=== PATIENT | female | born 1965 | race Caucasian/White ===

== ENCOUNTER 2023-12-17 19:03 | Emergency (ER) | payer OTHER, SELFPAY ==
[2023-12-17 19:15] VITALS: BP 176/104
[2023-12-17 20:18] VITALS: BP 149/95
--- NOTE | 2023-12-17 20:39 | ED.GENMED ---
Addendum entered and electronically signed by Sal Hernandez MD 12/17/23 21:53:
Normal sinus rhythm 87. [place] intervals within normal limits. No acute changes. No change in EKG
Original Note:
History of Present Illness
General
Chief Complaint: Allergic Reaction
Source: patient
Exam Limitations: none
Time Seen by Provider: 12/17/23 20:25
Travel History
Have you had any contact with someone who has COVID-19?: Yes
Comment: 2 WEEKS AGO
Do you have any symptoms of coronavirus? Fever > 100 degrees, chills, cough, shortness of breath, sore throat, loss of taste or smell, muscle aches, or headache?: No
History of Present Illness
History of Present Illness:
58-year-old female went into a store at about 4 PM. Fairly suddenly felt itchy throat tightness eyes tearing took 6 Zyrtec and flow tach with moderate improvement. Had some heart racing dizziness and diarrhea patient was on cephalexin that was
finished last week. Currently feels moderately improved. Feels tired. No chest pain or shortness of breath. Some itchiness to her face
Past History
Past History
ED Past Medical History: HTN (Takes diltiazem ER 125 mg daily) and Other (Tachycardia)
ED Past Surgical History: Orthopedic and Other (Rhinoplasty)
Social History
Tobacco: Non-smoker
Alcohol: Occasional
Drug: None
Personal: Partner
Living: other (Lives with her fiwhit�)
Employment: Employed
Family History
Family History: Negative Early CAD or Sudden
Review of Systems
Review of Systems
All Other Systems: Not applicable
Constitutional: Denies fever
Cardiac: Denies chest pain
Phy Exam
Physical Exam
Physical Exam:
GENERAL: Alert and oriented in no apparent distress
EYE: Orbits normal.
NECK: Supple, no swelling
ENT: Pharynx with mild erythema
CARDIAC: Regular rate and rhythm without any obvious murmurs.
LUNGS: Clear breath sounds,normal
ABDOMEN: Soft, without focal tenderness or distention
NEUROLOGICAL: Alert and oriented , grossly non-focal
SKIN: Warm and dry, no rash or lesion, no discoloration, skin intact. No hives
MUSCULOSKELETAL: No edema,no deformity.Good color
PSYCH: Normal and appropriate interaction.
Course
Orders/Labs/Results
Orders:
Orders
12/17/23 20:33
Famotidine [Pepcid] 20 mg PO NOW STA
Prednisone [Deltasone] 50 mg PO NOW STA
12/17/23 20:51
EKG [Electrocardiogram (*1)] Urgent
Reason for Study: Chest Pain
EKG- Treatment ONCE
12/17/23 21:08
COVID-19 Antigen Urgent
Source: Nasal Swab
Vital Signs
Initial and Last Documented VS:
Initial Vital Signs
Temp Pulse Resp BP Pulse Ox
98 F 104 24 176/104 98
12/17/23 19:15 12/17/23 19:15 12/17/23 19:15 12/17/23 19:15 12/17/23 19:15
Last Documented Vital Signs
Temp Pulse Resp BP Pulse Ox
98 F 104 24 176/104 98
12/17/23 19:15 12/17/23 19:15 12/17/23 19:15 12/17/23 19:15 12/17/23 19:15
MDM/Problems Addressed
Differential Diagnosis Includes:
History and story all consistent with a allergic reaction. I do not feel there is a other etiology of the symptoms. Patient took Zyrtec. Will add Pepcid and prednisone with continued observation.
*Critical Care Note
Total Time (30-74mins, 75-104mins- exclusive of procedures): Not Applicable
Update Note
Update Note:
Blood pressure 127/94. Medically stable. Just feels tired. History all consistent with some type of allergic reaction. Nothing to support other etiology. Stable for discharge to follow-up
ED Attending Note
-
Portions of this chart may have been created with voice recognition software.� Occasional wrong word or��sound alike� substitutions may have occurred due to the inherent limitations of voice recognition software.
Discharge Plan
Departure
Patient Disposition: Home (Routine Discharge)
Date of Disposition: 12/17/23
Time of Disposition: 21:42
Patient with high blood pressure during this ER visit?: Yes
Discharge Problem:
Allergic reaction, Elevated blood pressure reading
Instructions: Allergic Reaction ED, BLOOD PRESSURE
Prescriptions:
New
prednisone 50 mg tablet
50 mg PO DAILY Qty: 5 0RF
No Action
diltiazem HCl 120 mg Capsule,Extended Release 24hr
120 mg PO DAILY
B Complex Tablet Extended Release
1 tab PO DAILY
levetiracetam 500 mg Tablet
250 mg PO DAILY
psyllium Packet
1 packet PO QPMPRN PRN (Reason: constipation)
melatonin 3 mg Tablet
3 mg PO Q72H
aspirin 81 mg Tablet,Delayed Release (Dr/Ec)
81 mg PO DAILYPRN PRN (Reason: racing heart)
arnica 20 % Tincture
1 ea TOPICAL DAILYPRN PRN (Reason: bruising)
cholecalciferol (vitamin D3) [Vitamin D3] 25 mcg (1,000 unit) Tablet
25 mcg PO DAILY
magnesium oxide 400 mg magnesium Tablet
400 mg PO DAILY
Fennel Tea
1 dose PO DAILYPRN PRN (Reason: hot flashes)
levetiracetam [Keppra] 500 mg tablet
500 mg PO QPM
zinc sulfate 50 mg zinc (220 mg) Tablet
50 mg PO DAILY
valacyclovir 1 gram tablet
1,000 mg PO Q8H Qty: 21 0RF
Referrals:
Gresham,Alicia S., MD [Family Provider] - Follow up in 2-3 days
Activity Restrictions/Additional Instructions:
Continue Zyrtec for the next few days
Also take a Pepcid a day for a week
Follow-up closely with your primary physician
Interventions
Interventions:
*Risk Screen - Suicide Last Done: 12/17/23 19:15
*General Assessment Last Done: 12/17/23 20:22
*Neglect/Abuse Screening Last Done: 12/17/23 19:15
*ED COVID-19 Vaccine History Last Done: 12/17/23 20:22
Discharge Date and Time
Print Language: GERMAN
[2023-12-17] MEDS: PEPCID 20 MG PO (21:01)
[2023-12-17] MEDS: DELTASONE 50 MG PO (21:01)
[2023-12-17 21:28] LABS: COVID-19 Antigen Negative (Negative)
[2023-12-17 21:36] VITALS: BP 127/97
== END 2023-12-17 22:03 | disposition home or self-care (01) ==
LOC: EMR 19:03
PROVIDERS: EMERGENCY PHYSICIAN Emergency Medicine; FAMILY PHYSICIAN Internal Medicine
DX: T78.40XA Allergy, unspecified, initial encounter (principal); I10 Essential (primary) hypertension; R42 Dizziness and giddiness; R19.7 Diarrhea, unspecified; R00.0 Tachycardia, unspecified; R09.89 Other specified symptoms and signs involving the circulatory and respiratory systems; L29.9 Pruritus, unspecified; Z11.52 Encounter for screening for COVID-19; Z79.899 Other long term (current) drug therapy; Z79.82 Long term (current) use of aspirin; Z88.0 Allergy status to penicillin; Z88.2 Allergy status to sulfonamides
CPT/HCPCS: 99283; 87811; 93005

== ENCOUNTER → 2024-02-08 08:09 | Outpatient (REF) | payer OTHER, SELFPAY | LOC: WDC 08:09 | PROVIDERS: ATTENDING PHYSICIAN Obstetrics & Gynecology; FAMILY PHYSICIAN Nurse Practitioner | DX: R92.2 Inconclusive mammogram (principal); R92.30 Dense breasts, unspecified | CPT/HCPCS: 76641 ==

== ENCOUNTER → 2024-04-11 09:49 | Outpatient (REF) | payer OTHER, SELFPAY | LOC: RCS 09:49 | PROVIDERS: ATTENDING PHYSICIAN Nurse Practitioner; FAMILY PHYSICIAN Internal Medicine | DX: R07.89 Other chest pain (principal); I10 Essential (primary) hypertension; I48.0 Paroxysmal atrial fibrillation | CPT/HCPCS: 93017; 93350 ==

== ENCOUNTER → 2024-06-21 08:19 | Outpatient (REF) | payer OTHER, SELFPAY | LOC: WDC 08:19 | PROVIDERS: ATTENDING PHYSICIAN Obstetrics & Gynecology; FAMILY PHYSICIAN Internal Medicine | DX: Z12.31 Encounter for screening mammogram for malignant neoplasm of breast (principal) | CPT/HCPCS: 77063; 77067 ==

== ENCOUNTER → 2024-06-28 09:15 | Outpatient (REF) | payer OTHER, SELFPAY | LOC: WDC 09:15 | PROVIDERS: ATTENDING PHYSICIAN Obstetrics & Gynecology; FAMILY PHYSICIAN Internal Medicine | DX: R92.8 Other abnormal and inconclusive findings on diagnostic imaging of breast (principal) | CPT/HCPCS: 76642 ==

== ENCOUNTER → 2024-09-17 12:52 | Outpatient (REF) | payer OTHER, SELFPAY | LOC: PAVMRI 12:52 | PROVIDERS: ATTENDING PHYSICIAN Internal Medicine Cardiovascular Disease; FAMILY PHYSICIAN Internal Medicine | DX: H93.19 Tinnitus, unspecified ear (principal); R51.9 Headache, unspecified | CPT/HCPCS: 70553; A9575 ==

== ENCOUNTER 2025-05-11 16:40 | Emergency (ER) | payer OTHER, SELFPAY ==
[2025-05-11 16:43] VITALS: BP 162/98
[2025-05-11 17:21] LABS: Hematocrit 42.2 % (37.0-47.0); Hemoglobin 14.1 g/dL (12.0-16.0); Mean Corp Hgb Conc. 33.4 g/dL (33.0-37.0); Mean Corpuscular Volume 92.3 fL (81.0-99.0); Nucleated Red Blood Cells % 0 %; Platelet Count 256 10^3/uL (130-400); Red Cell Dist. Width 12.5 % (11.5-14.5)
[2025-05-11 17:44] LABS: ALT (SGPT) 46 U/L (0-35); AST (SGOT) 41 U/L (14-36); Albumin 5.0 g/dl (3.5-5.0); Alkaline Phosphatase 73 U/L (38-126); Blood Urea Nitrogen 10 mg/dl (7-17); Calcium 9.7 mg/dl (8.4-10.2); Carbon Dioxide 27 mmol/L (22-30); Chloride 98 mmol/L (98-107); Glucose 97 mg/dl (70-99); Potassium 5.6 mmol/L (3.5-5.1); Sodium 131 mmol/L (135-145); Total Protein 8.4 g/dl (6.3-8.2); eGFR > 60.00
[2025-05-11 19:09] VITALS: BMI 20.7
--- NOTE | 2025-05-11 19:10 | EDRN ---
Pt was about to go out to dinner around [id number] and says she felt 'weird'. Pt noted a wavy line in R eye going up that lasted about 10 minutes. Pt had pressure in head and bp was 152/98. Pt felt very 'off'. Pt had shingles vaccine on
and concerned it may be a reaction. Pt had same visual disturbance and similar symptoms in 2012 - pt went to urgent care at that time and she says they waited for her bp to go down and everything resolved. Pt unsure if she still has pressure in
her head now because she has not eaten in awhile and thinks she is dehydrated from working in the yard all day. Pt has a stiff neck. Pt was nauseous when this happened, not now. No vomiting. Pt had photophobia during episode but not now. Pt had
her vision checked last week and eye pressures were normal. Visual disturbance has not returned since initial episode.
[2025-05-11 19:22] VITALS: BP 138/88
[2025-05-11 20:24] VITALS: BP 131/87
--- NOTE | 2025-05-11 22:26 | ED.GENMED ---
History of Present Illness
General
Chief Complaint: Visual Problem
Source: patient
Exam Limitations: none
Time Seen by Provider: 05/11/25 19:16
Nursing documentation reviewed up to this point in time: agreed with
History of Present Illness
History of Present Illness:
Patient is a 59-year-old female with history of hypertension who presents to the emergency department for evaluation of transient visual disturbance that she experienced earlier today. Patient states that around 5 PM she had just come in from
gardening in her backyard when she experienced a transient visual disturbance described as ' a band of waves in her peripheral vision'. The waves seem to migrate from her lower escoto of vision to the top and then repeat. This persisted for
approximately 5-10 minutes. She believes that this may have been happening in both eyes in the periphery.
She checks her blood pressure and was found to be hypertensive. This was also followed by a pressure type sensation in her head however denies any significant headache. By time of my evaluation, patient is completely asymptomatic. She denies any
visual changes. She denies any headache.
At no point during this event did patient have any loss of vision. She denies any diplopia. She denies any other neurologic symptoms. She has been ambulating independently without any dizziness.
Patient reports that she did have a similar episode many years ago. She has had past imaging performed which showed concern for MS however this was thoroughly worked up by a specialist at [place] without any findings. Continues to follow-up with
their office.
Patient did receive the shingles vaccine on . She denies any fever, neck pain, or rash. No chest pain or shortness of breath.
Past History
Past History
ED Past Medical History: HTN (Takes diltiazem ER 125 mg daily) and Other (Tachycardia)
ED Past Surgical History: Orthopedic and Other (Rhinoplasty)
Social History
Tobacco: Non-smoker
Alcohol: Occasional
Drug: None
Personal: Partner
Living: other (Lives with her fianc�)
Employment: Employed
Family History
Family History: Negative Early CAD or Sudden
Review of Systems
Review of Systems
Allergies reviewed?: Yes
All Other Systems: ROS reviewed and negative except as documented in HPI and ROS
Phy Exam
Physical Exam
Physical Exam:
Vitals: Hypertensive on arrival, improved by my assessment. Afebrile
General: Patient is very well appearing, no acute distress
Skin: Warm and dry, no rashes or lesions
Head: Normocephalic, atraumatic
Eyes: Sclera nonicteric. Pupils equal round and reactive to light bilaterally. EOMs intact. No nystagmus.
Throat: Protecting airway
Neck: Normal ROM, no cervical spine tenderness, no meningismus
Cardiac: Regular rate and rhythm, no murmurs.
Pulm: Normal respiratory effort, no wheezes, rales, rhonchi heard on exam
.
Abdomen: No abdominal tenderness.
Extremities: No evidence of cyanosis or edema. Strength 5/5 in bilateral upper and lower extremities. Sensation intact.
Neuro: AAOx3. CN II-XII grossly intact. No facial droop or asymmetry. Fluid speech. No focal neurologic deficits.
Psychiatric: Normal affect.
Course
Orders/Labs/Results
Orders:
Orders
05/11/25 16:43
EKG [Electrocardiogram (*1)] Urgent
Reason for Study: Tachycardia
CT Head W/o Iv Contrast Urgent
Comment:
Reason For Exam: headache with visual disturbance
EKG- Treatment ONCE
05/11/25 17:01
Complete Blood Count/With Diff Urgent
Comprehensive Metabolic Panel Urgent
05/11/25 19:48
Visual Acuity- Treatment ONCE
Abnormal Lab Results
05/11/25
17:01
Absolute Monos (auto) 0.7 H 10^3/uL
(0.1-0.6)
Monocytes % 10.1 H %
(1.7-9.3)
Eosinophils % 6.2 H %
(0-6)
Sodium 131 L mmol/L
(135-145)
Potassium 5.6 H mmol/L
(3.5-5.1)
AST 41 H U/L
(14-36)
ALT 46 H U/L
(0-35)
Total Protein 8.4 H g/dl
(6.3-8.2)
05/11/25 17:01
05/11/25 17:01
Vital Signs
Initial and Last Documented VS:
Initial Vital Signs
Temp Pulse Resp BP Pulse Ox
97.7 F 94 16 162/98 100
05/11/25 16:43 05/11/25 16:43 05/11/25 16:43 05/11/25 16:43 05/11/25 16:43
Last Documented Vital Signs
Temp Pulse Resp BP Pulse Ox
97.7 F 88 14 131/87 100
05/11/25 16:43 05/11/25 20:24 05/11/25 20:24 05/11/25 20:24 05/11/25 22:26
MDM/Problems Addressed
Differential Diagnosis Includes:
Not limited to: Ocular migraine with aura, macular degeneration, cataracts, demyelinating disease, TIA/CVA, seizure,
MDM/Problems Addressed:
59 year-old female with transient visual disturbance today, followed by mild head pressure and HTN. All symptoms resolved by my evaluation. No other associated neurologic symptoms. Visual change described as �wave-like motion� in the periphery of
likely both eyes.
Mildly hypertensive, otherwise stable. On exam, patient very well appearing and in no distress. She is neurologically intact without any focal deficits. Visual acuity noted. NIH of 0
Basic labs sent prior to my evaluation significant for mild hyperkalemia however no EKG changes. Head CT shows no acute abnormalities.
She has remained asymptomatic in ED.
While no history of severe headache, there was some mild discomfort following visual disturbances earlier. Symptoms most consistent with migraine with visual aura. She had no loss of vision. She has no other neurologic findings or symptoms � low
suspicion for TIA/CVA. No evidence of infectious process. She has had length workup for MS in past which was negative.
I did discuss case with attending physician. Will plan to discharge home with continued supportive care and outpatient follow-up. She will f/u with neurology. Strict return precautions were discussed. The patient verbalized understanding.
Chronic conditions affecting care:
Hypertension
Acute Exacerbation and/or Progression of Chronic Illness:
Acutely hypertensive
*Radiology
Radiology exam reviewed: radiology read reviewed
*Pulse Oximetry
SaO2: 100
Oxygen Mode of Delivery: Room air
Patient hypoxic: no
*EKG
Interpreted by ED Provider?: Yes
EKG Intrepretation Date: 05/11/25
Interpretation: normal
Comparison EKG: no changes
Heart Rate: 87
Rate: normal
Rhythm: sinus
[place]: normal axis
Interval: normal QT interval
QRS Pattern: normal QRS
Ischemia: no ischemia
*Wallpaper Inspector Interpretation
Rate: Wallpaper Inspector- N/A
*Critical Care Note
Total Time (30-74mins, 75-104mins- exclusive of procedures): Not Applicable
Patient Management
Discussion with other providers: Hook And Eye Attacher (Case discussed with ED attending physician)
ED Attending Note
-
Portions of this chart may have been created with voice recognition software.� Occasional wrong word or��sound alike� substitutions may have occurred due to the inherent limitations of voice recognition software.
Discharge Plan
Departure
Patient Disposition: Home (Routine Discharge)
Date of Disposition: 05/11/25
Time of Disposition: 21:04
Patient with high blood pressure during this ER visit?: Yes
Discharge Problem:
Visual aura
Instructions: Migraines (DC), BLOOD PRESSURE
Prescriptions:
No Action
diltiazem HCl 120 mg Capsule,Extended Release 24hr
120 mg PO DAILY
B Complex Tablet Extended Release
1 tab PO DAILY
psyllium Packet
1 packet PO QPMPRN PRN (Reason: constipation)
cholecalciferol (vitamin D3) [Vitamin D3] 25 mcg (1,000 unit) Tablet
25 mcg PO DAILY
magnesium oxide 400 mg magnesium Tablet
200 - 400 mg PO DAILY
levetiracetam [Keppra] 250 mg Tablet
250 mg PO Q48H
Patient Comments:
pt is tapering off this medication - takes it at HS every other day - doctor told pt she can go off this medication
ferrous sulfate [iron] 325 mg (65 mg iron) Tablet
325 mg PO DAILY
Fish Oil-Vit D3
1 cap PO DAILY
Patient Comments:
pt syas she takes this when she remembers to do so and adds it gives her heartburn
Referrals:
Fatoumata Diaz MD [Family Provider, Internal Medicine] - Follow up in 5-7 days
Activity Restrictions/Additional Instructions:
RETURN TO THE EMERGENCY DEPARTMENT ANY SEVERE HEADACHE, NECK PAIN, PERSISTENT OR RECURRENT VISUAL CHANGES, LOSS OF VISION, DIZZINESS, NUMBNESS/TINGLING OR WEAKNESS IN EXTREMITIES, WORSENING IN CURRENT SYMPTOMS, OR ANY OTHER CONCERNS
- As discussed, your lab work revealed a mildly elevated potassium level and liver function tests. Please limit dietary potassium and stay well-hydrated. Have these lab values rechecked with primary care to ensure trending down.
- Take Tylenol and/or Motrin as needed for any headache or discomfort.
- Follow-up with primary care and neurology for further evaluation/management and to ensure that symptoms are improving
Monitor your symptoms closely and return to the emergency department with any acute worsening/new symptoms or any other concerns
Interventions
Interventions:
*Risk Screen - Suicide Last Done: 05/11/25 16:43
*General Assessment Last Done: 05/11/25 16:43
*Neglect/Abuse Screening Last Done: 05/11/25 16:43
*ED- Fall Risk Assessment Last Done: 05/11/25 19:09
*ED COVID-19 Vaccine History Last Done: 05/11/25 19:09
*ED Influenza Vaccine History Last Done: 05/11/25 19:09
*Nursing Disposition Last Done: 05/11/25 21:10
ED- Neurological Assessment Last Done: 05/11/25 19:26
Discharge Date and Time
Discharge Date/Time: 05/11/25 21:10
Print Language: [id number]
== END 2025-05-11 21:10 | disposition home or self-care (01) ==
LOC: EMR 16:40
PROVIDERS: Student in an Organized Health Care Education/Training Program; EMERGENCY PHYSICIAN Student in an Organized Health Care Education/Training Program; FAMILY PHYSICIAN Hospitalist
DX: H53.8 Other visual disturbances (principal); R51.9 Headache, unspecified; I10 Essential (primary) hypertension; J45.909 Unspecified asthma, uncomplicated; Z79.899 Other long term (current) drug therapy; Z88.0 Allergy status to penicillin; Z88.2 Allergy status to sulfonamides
CPT/HCPCS: 99284; 70450; 80053; 85025; 93005